=== PATIENT | female | born 1975 | race Two or more races ===

== ENCOUNTER 2016-08-31 15:11 | Emergency (ER) | payer MEDICAID, OTHER, SELFPAY ==
[~2016-08-31] VITALS: Ht 157.5 cm; Wt 63.0 kg
[2016-08-31 15:56] LABS: BLOOD UREA NITROGEN 10 mg/dL (7-18)
[2016-08-31 17:56] VITALS: BP 120/70
== END 2016-08-31 18:26 | disposition home or self-care (01) ==
LOC: ED 16:40
DX: O02.0 Blighted ovum and nonhydatidiform mole (principal); Z3A.09 9 weeks gestation of pregnancy
CPT/HCPCS: 36415; 76801; 80048; 81001; 82040; 84702; 85025; 86901; 99285

== ENCOUNTER 2016-09-04 10:24 | Emergency (ER) | payer SELFPAY ==
[~2016-09-04] VITALS: Ht 147.3 cm; Wt 63.5 kg
[2016-09-04 10:26] VITALS: BP 117/71
== END 2016-09-04 12:43 | disposition home or self-care (01) ==
LOC: ED 11:02
DX: O02.0 Blighted ovum and nonhydatidiform mole (principal); Z3A.09 9 weeks gestation of pregnancy
CPT/HCPCS: 36415; 84702; 85025; 99284